=== PATIENT | male | born 1995 | race African-American/Black ===

== ENCOUNTER 2017-07-15 04:11 | Emergency (ER) | payer OTHER ==
[~2017-07-15] VITALS: Ht 170.2 cm; Wt 79.5 kg
[2017-07-15] MEDS ORDERED: ACETAMINOPHEN 325 MG TAB PO ONE (06:30)
--- NOTE | 2017-07-15 07:30 | REPUSA ---
CLINICAL HISTORY: Headaches. TECHNIQUE: Multiple axial brain CT scan sections were obtained from base to vertex without contrast a dministration. COMMENTS: The study shows normal configuration of sella turcica. There are no intra or extra-axial collections. There is no mass effect or midline shift. There is no evidence of hematoma formation. No hydrocephal us is present. No abnormal calcifications are noted. No significant abnormalities are seen either in the posterior fossa or supratentorial compartment. The sinuses and mastoid air cells are patent. IMPRESSION: No evidence of acute intracranial pathology. Thank you for your kind referral of this patient.
[2017-07-15] MEDS ORDERED: KETOROLAC 60 MG/2 ML VIAL (J1885) IM ONE (07:45)
[2017-07-15 08:45] VITALS: BP 139/60
== END 2017-07-15 08:47 | disposition home or self-care (01) ==
LOC: M ED 04:11
DX: G43.909 Migraine, unspecified, not intractable, without status migrainosus (principal)
CPT/HCPCS: 70450; 96372; 99283; J1885

== ENCOUNTER 2019-06-20 03:09 | Emergency (ER) | payer OTHER, SELFPAY ==
[~2019-06-20] VITALS: Ht 172.7 cm; Wt 84.1 kg
[2019-06-20 03:41] LABS: HEMATOCRIT 42.1 % (42.0-52.0); HEMOGLOBIN 13.7 g/dl (13.5-17.5); MEAN CORPUSCULAR HEMOGLOBIN 28.9 pg (27.0-33.0); MEAN CORPUSCULAR HGB CONC 32.5 g/dl (32.0-36.5); MEAN CORPUSCULAR VOLUME 88.8 fl (80.0-96.0); PLATELET COUNT, AUTOMATED 221 10^3/uL (150-450); RED BLOOD COUNT 4.74 10^6/uL (4.30-6.10); WHITE BLOOD COUNT 8.4 10^3/uL (4.0-10.0)
[2019-06-20 04:08] LABS: AMPHETAMINES LEVEL URINE NEGATIVE (NEGATIVE); BARBITURATES URINE NEGATIVE (NEGATIVE); BENZODIAZEPINES URINE NEGATIVE (NEGATIVE); CANNABINOIDS URINE NEGATIVE (NEGATIVE); COCAINE METABOLITE URINE NEGATIVE (NEGATIVE); METHADONE URINE NEGATIVE (NEGATIVE); OPIATES URINE NEGATIVE (NEGATIVE); PHENCYCLIDINE URINE NEGATIVE (NEGATIVE)
[2019-06-20 04:27] LABS: ACETAMINOPHEN LEVEL < 2.0 UG/ML (10.0-30.0); ALBUMIN 4.6 GM/DL (3.2-5.2); ALT/SGPT 20 U/L (12-78); BILIRUBIN,DIRECT 0.1 MG/DL (0.0-0.2); BILIRUBIN,TOTAL 0.6 MG/DL (0.2-1.0); BLOOD UREA NITROGEN 13 MG/DL (7-18); CARBON DIOXIDE LEVEL 26 MEQ/L (21-32); CHLORIDE LEVEL 107 MEQ/L (98-107); ETHYL ALCOHOL (ETHANOL) < 0.003 % (0.000-0.010); GLOMERULAR FILTRATION RATE > 60.0 (>60); GLUCOSE, FASTING 76 MG/DL (70-100); SALICYLATE LEVEL < 1.7 MG/DL (5.0-30.0); SODIUM LEVEL 141 MEQ/L (136-145); TOTAL PROTEIN 8.1 GM/DL (6.4-8.2)
[2019-06-20 08:33] VITALS: BP 144/73
--- NOTE | 2019-06-21 08:41 | ECGEPIP ---
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
== END 2019-06-20 09:42 | disposition home or self-care (01) ==
LOC: M ED 03:09
DX: F43.21 Adjustment disorder with depressed mood (principal); R00.1 Bradycardia, unspecified; F17.200 Nicotine dependence, unspecified, uncomplicated; Z63.0 Problems in relationship with spouse or partner
CPT/HCPCS: 36415; 80048; 80076; 80307; 84443; 85027; 93005; 99284; G0480